=== PATIENT | female | born 1980 | race Caucasian/White ===

== ENCOUNTER 2018-12-10 05:56 | Emergency (ER) | payer BC ==
[2018-12-10] MEDS: LORAZEPAM 1 MG TAB PO (07:23)
== END 2018-12-10 08:19 | disposition home or self-care (01) ==
LOC: FTE 05:56
DX: F41.9 Anxiety disorder, unspecified (principal); F17.210 Nicotine dependence, cigarettes, uncomplicated; R05 Cough
CPT/HCPCS: 81025; 99283